=== PATIENT | male | born 1995 ===

== ENCOUNTER 2018-10-16 13:29 | Emergency (ER) | payer SELFPAY ==
[2018-10-16 13:30] VITALS: BMI 37.0
[2018-10-16 13:35] VITALS: BP 130/74; PULSE 90; RESP 18; TEMP 98.7; O2SAT 98
[2018-10-16] MEDS ORDERED: Sodium Chloride 0.9% 1,000 ML IV STA (13:55)
--- NOTE | 2018-10-16 14:00 | ED PDOC ---
HPI: Allergic Reaction Time Seen by Provider: 10/16/18 13:56 Chief Complaint (Nursing): Allergic Reaction Chief Complaint (Provider): Allergic Reaction History Per: Patient History/Exam Limitations: no limitations Onset/Duration Of Symptoms: Days Current Symptoms Are (Timing): Still Present Additional Complaint(s): 23 y/o male presents to the ED for evaluation of an allergic reaction. Patient reports of taking 800 mg of Motrin last night and another 800 mg of Motrin this morning after feeling like he had a fever. Patient states he did not know he had an allergy to Motrin but was confirmed of the allergy by mother this morning after taking medications. Patient notes of lip swelling and generalized hives. Patient additionally too 40 mg of Pepcid, 60 mg of Prednisone and 50 mg of Benadryl for symptoms. Patient states symptoms have persisted thus prompting today's visit. Patient additionally reports of a rash on his upper body. Mother states rash has dramatically improved. Otherwise, patient denies any other symptoms including throat pain PMD: no provider Past Medical History Reviewed: Historical Data, Nursing Documentation, Vital Signs Vital Signs: Last Vital Signs Temp 98.7 F 10/16/18 13:34 Pulse 90 10/16/18 13:34 Resp 18 10/16/18 13:34 BP 130/74 10/16/18 13:34 Pulse Ox 98 10/16/18 13:34 - Medical History PMH: Fractures (bilat wrist) - Surgical History Surgical History: No Surg Hx - Family History Family History: States: Unknown Family Hx - Immunization History Hx Tetanus Toxoid Vaccination: No Hx Influenza Vaccination: No Hx Pneumococcal Vaccination: No - Home Medications Home Medications: Ambulatory Orders Medication Instructions Recorded RX: Promethazine/Codeine 5 ml PO .Q4-6H PRN #280 ml 01/29/16 [Phenergan/Codeine Oral Syrup] DiphenhydrAMINE [Benadryl] 50 mg PO Q6 PRN #24 cap 10/16/18 Epinephrine HCl [Epipen 0.3 mg MR ONCE PRN #0.3 ml 10/16/18 Auto-Injector] Famotidine [Pepcid] 20 mg PO BID #10 tab 10/16/18 predniSONE [Prednisone] 3 tab PO DAILY #12 tab 10/16/18 - Allergies Allergies/Adverse Reactions: Allergies Allergy/AdvReac Type Severity Reaction Status Date / Time ibuprofen [From Motrin] Allergy Verified 01/29/16 21:31 Review of Systems ROS Statement: Except As Marked, All Systems Reviewed And Found Negative Constitutional: Positive for: Fever (at onset ), Other (allergic reaction) ENT: Positive for: Other (lip swelling) Skin: Positive for: Rash (hives) Physical Exam - Reviewed Nursing Documentation Reviewed: Yes Vital Signs Reviewed: Yes - Physical Exam Appears: Positive for: No Acute Distress ((-) CHANGE IN VOICE) Skin: Positive for: Rash (Hives noted to torso) ENT: Positive for: Other (moderate lip swelling noted. No uvula edema.) Respiratory: Positive for: Normal Breath Sounds (lungs clear to auscultation) - Laboratory Results Result Diagrams: 10/16/18 14:34 10/16/18 14:34 - ECG O2 Sat by Pulse Oximetry: 98 (RA) Pulse Ox Interpretation: Normal - Progress ED Course And Treament: Time: 1355 Plan: -- CMP -- CBC with Differentials -- Sodium Chloride IV 500 mls/hr -- Influenza A B Scribe Attestation: Documented by Winston Aragon, acting as a scribe Carlos Rodas PA-C. Provider Scribe Attestation: All medical record entries made by the Scribe were at my direction and personally dictated by me. I have reviewed the chart and agree that the record accurately reflects my personal performance of the history, physical exam, medical decision making, and the department course for this patient. I have also personally directed, reviewed, and agree with the discharge instructions and disposition. INFLUENZA A/B NEG SOLUMEDROL 125 MG IV WITH IMPROVEMent and resolution of lip swelilng BENADRYL 50 MG IV X 1 DOSE Disposition - Clinical Impression Clinical Impression: Allergic reaction - Patient ED Disposition Is Patient to be Admitted: No - Disposition Disposition: Routine/Home Disposition Time: 18:25 Condition: FAIR Prescriptions: DiphenhydrAMINE [Benadryl] 50 mg PO Q6 PRN #24 cap PRN Reason: Itching / Pruritus Epinephrine HCl [Epipen Auto-Injector] 0.3 mg MR ONCE PRN #0.3 ml PRN Reason: Anaphylaxis Famotidine [Pepcid] 20 mg PO BID #10 tab predniSONE [Prednisone] 3 tab PO DAILY #12 tab Instructions: Drug Allergy Forms: [facility] ED School/Work Excuse
[2018-10-16 14:44] LABS: BASO % 0.4 % (0.0-2.0); EOS # 0.3 K/uL (0.0-0.7); EOS % 3.2 % (0.0-4.0); HEMOGLOBIN 13.1 g/dL (12.0-18.0); LYMPH # 1.5 K/uL (1.0-4.3); LYMPH % 18.4 % (20.0-40.0); MEAN CELL VOLUME 79.5 fl (80.0-94.0); MEAN CORPUSCULAR HEMOGLOBIN 25.6 pg (27.0-31.0); MEAN CORPUSCULAR HGB CONC 32.2 g/dL (33.0-37.0); MEAN PLATELET VOLUME 9.6 fl (7.2-11.7); MONO # 0.4 K/uL (0.0-0.8); MONO % 5.5 % (0.0-10.0); NEUT # 5.7 K/uL (1.8-7.0); NEUT % 72.5 % (50.0-75.0); RBC 5.12 Mil/uL (4.40-5.90); RED CELL DISTRIBUTION WIDTH 14.3 % (11.5-14.5); WHITE BLOOD COUNT 7.9 K/uL (4.8-10.8)
[2018-10-16 14:54] LABS: ALBUMIN 3.8 g/dL (3.5-5.0); ALT/SGPT 36 U/L (21-72); AST/SGOT 29 U/L (17-59); BLOOD UREA NITROGEN 17 mg/dl (9-20); GFR NON-AFRICAN AMERICAN > 60
[2018-10-16] MEDS ORDERED: methylPREDNISolone 125 MG in Sodium Chloride 0.9% 50 ML IVPB STA (15:33)
[2018-10-16] MEDS ORDERED: DiphenhydrAMINE 50 mg/ml Inj IVP STA (18:09)
[2018-10-16] MEDS ORDERED: DiphenhydrAMINE 50 mg/ml Inj ONE (18:21)
== END 2018-10-16 18:37 | disposition home or self-care (01) ==
LOC: H.ER 13:29
DX: T78.40XA Allergy, unspecified, initial encounter (principal); Z79.899 Other long term (current) drug therapy; Z88.6 Allergy status to analgesic agent
CPT/HCPCS: 80053; 85025; 87804; 96374; 99283; J1200; J2930; J7030

== ENCOUNTER 2018-11-30 19:51 | Emergency (ER) | payer SELFPAY ==
[2018-11-30 19:52] VITALS: BMI 37.0
[2018-11-30 20:26] VITALS: BP 122/75; PULSE 92; RESP 16; TEMP 98.7; O2SAT 99
[2018-11-30] MEDS ORDERED: Albuterol 0.083% Inhal Sol (2.5 mg/3 mL) UD INH STA (21:19)
--- NOTE | 2018-11-30 21:48 | ED PDOC ---
HPI: Influenza Time Seen by Provider: 11/30/18 21:10 Chief Complaint: Cough, Cold, Congestion Chief Complaint (Provider): Cough, Rash History Per: Patient Exam Limitations: no limitations Onset/Duration Of Symptoms: Days (x1 week) Additional complaint(s):: 23 year old male presents to the ED for evaluation of a dry cough worse at night for the past week associated with itchy, watery eyes, some shortness of breath with exertion, and throat pain. Otherwise denies fever, nausea, vomiting, and diarrhea. He states he has been taking Robitussin for these symptoms with minimal relief. Additionally, patient states he also developed itchy hives to his chest and back only transiently relieved by Benadryl 2 tabs, last dose three days ago. Patient says he knows he is allergic to Ibuprofen, but denies any Ibuprofen ingestion or any new exposures such as detergents, perfumes, or foods. PMD: [place] Angela Past Medical History Reviewed: Historical Data, Nursing Documentation, Vital Signs Vital Signs: Last Vital Signs Temp 98.7 F 11/30/18 20:23 Pulse 92 H 11/30/18 20:23 Resp 16 11/30/18 20:23 BP 122/75 11/30/18 20:23 Pulse Ox 99 11/30/18 20:23 - Medical History PMH: Asthma (childhood), Fractures (bilat wrist) - Surgical History Surgical History: No Surg Hx - Family History Family History: States: Unknown Family Hx - Social History Current smoker - smoking cessation education provided: No Alcohol: None Drugs: Denies - Immunization History Hx Tetanus Toxoid Vaccination: No Hx Influenza Vaccination: No Hx Pneumococcal Vaccination: No - Home Medications Home Medications: Ambulatory Orders Medication Instructions Recorded Promethazine/Codeine 5 ml PO .Q4-6H PRN #280 ml 01/29/16 [Phenergan/Codeine Oral Syrup] DiphenhydrAMINE [Benadryl] 50 mg PO Q6 PRN #24 cap 10/16/18 Epinephrine HCl [Epipen 0.3 mg MR ONCE PRN #0.3 ml 10/16/18 Auto-Injector] Famotidine [Pepcid] 20 mg PO BID #10 tab 10/16/18 predniSONE [Prednisone] 3 tab PO DAILY #12 tab 10/16/18 Albuterol HFA [Ventolin HFA 90 2 puff IH [id number] #60 puff 11/30/18 mcg/actuation (8 g)] Azithromycin [Z-Lucas] 250 mg PO DAILY #6 tab 11/30/18 Benzonatate [Tessalon Perles] 100 mg PO TID PRN #30 sgl 11/30/18 Cetirizine HCl [Zyrtec] 10 mg PO DAILY #30 tab.rapdis 11/30/18 - Allergies Allergies/Adverse Reactions: Allergies Allergy/AdvReac Type Severity Reaction Status Date / Time ibuprofen [From Motrin] Allergy Verified 01/29/16 21:31 Review of Systems ROS Statement: Except As Marked, All Systems Reviewed And Found Negative Constitutional: Negative for: Fever Eyes: Positive for: Other (itchy watery eyes bilaterally) ENT: Positive for: Throat Pain Respiratory: Positive for: Cough (dry), SOB with Exertion Gastrointestinal: Negative for: Nausea, Vomiting, Diarrhea Skin: Positive for: Rash (hives on chest and back, itchy) Physical Exam - Reviewed Nursing Documentation Reviewed: Yes Vital Signs Reviewed: Yes - Physical Exam Appears: Positive for: Well, No Acute Distress Head Exam: Positive for: ATRAUMATIC, NORMAL INSPECTION, NORMOCEPHALIC Skin: Positive for: Rash (hives noted on chest and back, pruritic, although improved from image patient showed me of rash earlier today) Eye Exam: Positive for: Normal appearance. Negative for: Conjunctival injection (bilaterally) ENT: Positive for: TM Is/Are (INTACT. BILAT REDNESS TO CANAL, NEG EFFUSION OR SWELLING ), Tonsillar Exudate (left sided). Negative for: Pharyngeal Erythema, Tonsillar Swelling Neck: Positive for: Normal, Painless ROM, Supple Cardiovascular/Chest: Positive for: Regular Rate, Rhythm Respiratory: Positive for: Normal Breath Sounds, Other (coughing with deep inspirations). Negative for: Rales, Rhonchi, Wheezing, Respiratory Distress Gastrointestinal/Abdominal: Positive for: Normal Exam, Soft. Negative for: Tenderness Back: Positive for: Normal Inspection Extremity: Positive for: Normal ROM (all extremities) Neurological/Psych: Positive for: Awake, Alert, Normal Tone, Oriented (x3). Negative for: Motor/Sensory Deficits Medical Decision Making Medical Decision Making: Time: 2113 Initial Impression: cough, rash, r/o strep Initial Plan: --CXR --Albuterol 2.5mg INH --Peak flow pre/post --Rapid strep --Reevaluation On reeval Pt states coughing has improved post neb treatment. Clinical findings discussed with patient. Rx given for z-lucas for 5 days, albuterol inhaler, zyrtec, Tessalon Perles. Follow-up with PMD as needed. Pt given return to ED precautions. Pt verbalizes understanding. Scribe Attestation: Documented by Bethanie Arzola, acting as a scribe for Soni Newby NP. Provider Scribe Attestation: All medical record entries made by the Scribe were at my direction and personally dictated by me. I have reviewed the chart and agree that the record accurately reflects my personal performance of the history, physical exam, medical decision making, and the department course for this patient. I have also personally directed, reviewed, and agree with the discharge instructions and disposition. - ECG O2 Sat by Pulse Oximetry: 99 (RA) Pulse Ox Interpretation: Normal Disposition - Clinical Impression Clinical Impression: Cough, Hives, Pharyngitis - Patient ED Disposition Is Patient to be Admitted: No Counseled Patient/Family Regarding: Diagnosis, Rx Given - Disposition Disposition: Routine/Home Disposition Time: 22:30 Condition: GOOD Prescriptions: Albuterol HFA [Ventolin HFA 90 mcg/actuation (8 g)] 2 puff IH [id number] #60 puff Azithromycin [Z-Lucas] 250 mg PO DAILY #6 tab Benzonatate [Tessalon Perles] 100 mg PO TID PRN #30 sgl PRN Reason: Cough Cetirizine HCl [Zyrtec] 10 mg PO DAILY #30 tab.rapdis Instructions: Hives, Sore Throat, Adult (DC), Cough, Adult (DC) Print Language: ARGENTINE - POA Present On Arrival: None
--- NOTE | 2018-12-01 17:00 | RAD ---
Date of service: 11/30/2018 HISTORY: shortness of breath COMPARISON: No prior. TECHNIQUE: Chest PA and lateral views FINDINGS: LUNGS: No active pulmonary disease. PLEURA: No significant pleural effusion identified. No pneumothorax apparent. CARDIOVASCULAR: No aortic atherosclerotic calcification present. Normal cardiac size. No pulmonary vascular congestion. OSSEOUS STRUCTURES: No significant abnormalities. VISUALIZED UPPER ABDOMEN: Normal. OTHER FINDINGS: None. IMPRESSION: No active disease.
== END 2018-11-30 23:19 | disposition home or self-care (01) ==
LOC: H.ER 19:51
DX: R05 Cough (principal); J02.9 Acute pharyngitis, unspecified; L50.9 Urticaria, unspecified

== ENCOUNTER 2019-02-01 23:24 | Emergency (ER) | payer SELFPAY ==
[2019-02-01 23:24] VITALS: BMI 37.0
[2019-02-02 00:17] VITALS: RESP 18; O2SAT 96
[2019-02-02] MEDS ORDERED: Albuterol-Ipratrop 3 mg / 0.5 (3 ml) UD INH STA (01:04)
[2019-02-02] MEDS ORDERED: Albuterol-Ipratrop 3 mg / 0.5 (3 ml) UD ONE (01:42)
--- NOTE | 2019-02-02 01:57 | ED PDOC ---
History of Present Illness History of Present Illness: 23 year old male presents to ED with SOB and cough x1 week. Patient states he has been having seasonal allergies but symptoms got worse today after working on sanding wood floors even though he was wearing a mask. He reports a sense of chest tightness and has been taking Zyrtec for allergies; last taken 24 hours ago. PMD: Gordy Turner HPI: Influenza Time Seen by Provider: 02/02/19 00:20 Chief Complaint: Cough, Cold, Congestion Chief Complaint (Provider): Cough, SOB History Per: Patient ( ) Exam Limitations: no limitations Onset/Duration Of Symptoms: Hrs Past Medical History Reviewed: Historical Data, Nursing Documentation, Vital Signs Vital Signs: Last Vital Signs Temp 98.4 F 02/02/19 00:15 Pulse 92 H 02/02/19 00:15 Resp 18 02/02/19 00:15 BP 132/84 02/02/19 00:15 Pulse Ox 96 02/02/19 00:15 Primary Care Provider: Gordy Turner - Medical History PMH: Asthma (childhood), Fractures (bilat wrist) - Surgical History Surgical History: No Surg Hx - Family History Family History: States: Unknown Family Hx - Social History Current smoker - smoking cessation education provided: No Alcohol: None Drugs: Denies - Immunization History Hx Tetanus Toxoid Vaccination: No Hx Influenza Vaccination: No Hx Pneumococcal Vaccination: No - Home Medications Home Medications: Ambulatory Orders Medication Instructions Recorded Promethazine/Codeine 5 ml PO .Q4-6H PRN #280 ml 01/29/16 [Phenergan/Codeine Oral Syrup] DiphenhydrAMINE [Benadryl] 50 mg PO Q6 PRN #24 cap 10/16/18 Epinephrine HCl [Epipen 0.3 mg MR ONCE PRN #0.3 ml 10/16/18 Auto-Injector] Famotidine [Pepcid] 20 mg PO BID #10 tab 10/16/18 predniSONE [Prednisone] 3 tab PO DAILY #12 tab 10/16/18 Albuterol HFA [Ventolin HFA 90 2 puff IH [id number] #60 puff 11/30/18 mcg/actuation (8 g)] Azithromycin [Z-Lucas] 250 mg PO DAILY #6 tab 11/30/18 Benzonatate [Tessalon Perles] 100 mg PO TID PRN #30 sgl 11/30/18 Cetirizine HCl [Zyrtec] 10 mg PO DAILY #30 tab.rapdis 11/30/18 Albuterol Sulfate [Proair Hfa] 0.09 mg IH Q6 PRN #1 inh 02/02/19 predniSONE [predniSONE Tab] 60 mg PO QAM #12 tab 02/02/19 - Allergies Allergies/Adverse Reactions: Allergies Allergy/AdvReac Type Severity Reaction Status Date / Time ibuprofen [From Motrin] Allergy Verified 01/29/16 21:31 Review of Systems ROS Statement: Except As Marked, All Systems Reviewed And Found Negative Cardiovascular: Positive for: Chest Pain (tightness) Respiratory: Positive for: Cough, Shortness of Breath Physical Exam - Reviewed Nursing Documentation Reviewed: Yes Vital Signs Reviewed: Yes - Physical Exam Appears: Positive for: No Acute Distress Head Exam: Positive for: ATRAUMATIC, NORMAL INSPECTION, NORMOCEPHALIC Skin: Positive for: Normal Color, Warm, Dry Eye Exam: Positive for: EOMI, Normal appearance, PERRL ENT: Positive for: Normal ENT Inspection Neck: Positive for: Normal, Painless ROM, Supple Cardiovascular/Chest: Positive for: Regular Rate, Rhythm. Negative for: Murmur Respiratory: Positive for: Other (mild expiratory distress, decreased air entry) Gastrointestinal/Abdominal: Positive for: Normal Exam, Soft. Negative for: Tenderness Back: Positive for: Normal Inspection. Negative for: L CVA Tenderness, R CVA Tenderness, Vertebral Tenderness Extremity: Positive for: Normal ROM. Negative for: Pedal Edema, Deformity Neurological/Psych: Positive for: Alert, Oriented (x3). Negative for: Motor/Sensory Deficits Medical Decision Making Medical Decision Making: Time: 154 Initial Impression: 23 year old male with allergies and bronchitis Initial Plan: --Duoneb --Prednisone 0254 Patient reports marked improvement in symptoms and is stable for discharge. He is diagnosed with allergic bronchitis. Scribe Attestation: Documented by Pipe Neley acting as a scribe for Charlie Prieto MD. Provider Scribe Attestation: All medical record entries made by the Scribe were at my direction and personally dictated by me. I have reviewed the chart and agree that the record accurately reflects my personal performance of the history, physical exam, medical decision making, and the department course for this patient. I have also personally directed, reviewed, and agree with the discharge instructions and disposition. - ECG O2 Sat by Pulse Oximetry: 96 (RA) Pulse Ox Interpretation: Normal Disposition - Clinical Impression Clinical Impression: Allergic bronchitis - Disposition Referrals: Gordy Turner MD [Primary Care Provider] - Disposition: Routine/Home Disposition Time: 02:55 Condition: STABLE Prescriptions: Albuterol Sulfate [Proair Hfa] 0.09 mg IH Q6 PRN #1 inh PRN Reason: Shortness Of Breath predniSONE [predniSONE Tab] 60 mg PO QAM #12 tab Instructions: Asthma in Adults Forms: [facility] (Japanese)
[2019-02-02 04:49] VITALS: BP 129/64; PULSE 102; TEMP 98.5
== END 2019-02-02 02:52 | disposition home or self-care (01) ==
LOC: H.ER 23:24
DX: J20.8 Acute bronchitis due to other specified organisms (principal)